=== PATIENT | female | born 1990 ===

== ENCOUNTER 2022-01-16 09:59 | Inpatient (IN) ==
[2022-01-16] MEDS ORDERED: miSOPROStoL 200 MCG TABLET RECTAL PRN (10:32)
[2022-01-16] MEDS ORDERED: ceFAZolin 3,000 MG in SYRINGE 1 EACH IV ONE (10:32)
[2022-01-16] MEDS ORDERED: CARBOPROST TROMETHAMINE 250 MCG/ML AMP IM PRN (10:32)
[2022-01-16] MEDS ORDERED: FAMOTIDINE 20 MG/2 ML VIAL IV ONE (10:32)
[2022-01-16] MEDS ORDERED: CITRIC ACID/SODIUM CITRATE 30 ML UDCUP PO ONE (10:32)
[2022-01-16] MEDS ORDERED: TRANEXAMIC ACID 1,000 MG in SODIUM CHLORIDE 0.9% 100 ML IV PRN (10:32)
[2022-01-16] MEDS ORDERED: METHYLERGONOVINE 0.2 MG/1 ML AMP IM PRN (10:32)
[2022-01-16] MEDS ORDERED: OXYTOCIN/LR 20 UNIT/1,000 ML BAG IV ONE ×2 (10:32→15:50)
[2022-01-16] MEDS ORDERED: OXYTOCIN/LR 30 UNIT/1,000 ML BAG IV ONE ×2 (10:34→10:37)
[2022-01-16 10:50] LABS: Basophils % 0.4 % (0.0-0.8); Eosinophils # 0.1 10*3/uL (0.0-0.87); Eosinophils % 1.1 % (0.00-10.9); Hematocrit 36.6 VOL% (35.7-47.0); Immature Granulocytes % 0.5 %; Immature Granulocytes Absolute 0.04 #; Lymphocytes # 2.3 10*3/uL (1.4-4.0); Lymphocytes % 28.7 % (21.3-54.2); Mean Corpuscular HGB Conc 32.8 GM/DL (32-36); Mean Corpuscular Volume 83.2 FL (87-102); Mean Platelet Volume 11.5 FL (9.6-12.0); Monocytes # 0.7 10*3/uL (0.11-0.8); Neutrophils % 61.3 % (38.7-73.9); Platelet Count 204 T/CUMM (130-400); Red Cell Distribution Width 13.4 % (9.3-17.3); White Blood Count 8.1 T/CUMM (4-12)
[2022-01-16] MEDS ORDERED: LACTATED RINGERS 1,000 ML IV SCH ×2 (11:00→16:00)
[2022-01-16 11:10] LABS: Alanine Aminotransferase 11 U/L (13-56); Albumin 2.4 G/DL (3.4-5.0); Alkaline Phosphatase 189 U/L (45-117); Aspartate Amino Transferase 12 U/L (0-37); Bilirubin,Total < 0.39 MG/DL (0.20-1.00); Blood Urea Nitrogen 12 MG/DL (7-18); Calcium 8.2 MG/DL (8.5-10.1); Carbon Dioxide 23 MMOL/L (21-32); Chloride 113 MMOL/L (98-107); Glucose 79 MG/DL (74-106); Osmolality,Calculated 281.1 MOS/KG (273-304); Potassium 3.6 MMOL/L (3.5-5.1); Sodium 142 MMOL/L (136-145); Total Protein 6.3 G/DL (6.4-8.2)
[2022-01-16] MEDS ORDERED: miSOPROStoL 200 MCG TABLET ONE (12:38)
[2022-01-16] MEDS ORDERED: METHYLERGONOVINE 0.2 MG/1 ML AMP ONE (12:38)
[2022-01-16] MEDS ORDERED: CARBOPROST TROMETHAMINE 250 MCG/ML AMP IM ONE (12:38)
[2022-01-16] MEDS ORDERED: ONDANSETRON 4 MG/2 ML VIAL ONE (13:38)
[2022-01-16] MEDS ORDERED: BUPIVACAINE SPINAL 0.75% 2 ML AMP SPINAL ONE (13:38)
[2022-01-16] MEDS ORDERED: PHENYLEPHRINE 1 MG/10 ML SYRINGE IV ONE (13:38)
[2022-01-16] MEDS ORDERED: buprenorphine HCL 0.3 MG/ML VIAL ONE (13:39)
[2022-01-16] MEDS ORDERED: KETOROLAC 30 MG/1 ML VIAL ONE (14:47)
[2022-01-16] MEDS ORDERED: ACETAMINOPHEN INJ 1,000 MG/100 ML VIAL IV ONE (14:47)
[2022-01-16 14:55] LABS: Cord Arterial Blood HCO3 22.3 MMOL/L
[2022-01-16 14:58] LABS: Cord Venous Blood HCO3 23.3 MMOL/L; Cord Venous Blood PCO2 44.5 MMHG; Cord Venous Blood PO2 37.8
[2022-01-16] MEDS ORDERED: ONDANSETRON 4 MG/2 ML VIAL IV PRN ×2 (15:50→20:41)
[2022-01-16] MEDS ORDERED: ACETAMINOPHEN 325 MG TABLET PO PRN (15:50)
[2022-01-16] MEDS ORDERED: SIMETHICONE CHEW 80 MG TABLET PO PRN (15:50)
[2022-01-16] MEDS ORDERED: RHO(D) IMMUNE GLOBULIN 300 MCG SYRINGE IM ONE (15:50)
[2022-01-16] MEDS ORDERED: MEPERIDINE 50 MG/1 ML VIAL IV PRN (20:41)
[2022-01-16] MEDS: DOCUSATE SODIUM 100 MG CAPSULE PO SCH (21:28)
[2022-01-16] MEDS ORDERED: ceFAZolin 2,000 MG in SODIUM CHLORIDE 0.9% 100 ML IV SCH (22:00)
[2022-01-16] MEDS: ceFAZolin 2,000 MG/50 ML DUPLEX IV SCH (22:57)
[2022-01-16] MEDS ORDERED: KETOROLAC 30 MG/1 ML VIAL IV SCH (23:00)
[2022-01-16] MEDS ORDERED: ACETAMINOPHEN 500 MG TABLET PO PRN (23:00)
[2022-01-16] MEDS ORDERED: KETOROLAC 30 MG/1 ML VIAL IV PRN (23:00)
[2022-01-16] MEDS ORDERED: ACETAMINOPHEN 500 MG TABLET PO SCH (23:00)
[2022-01-16 23:17] LABS: Basophils % 0.2 % (0.0-0.8); Eosinophils % 0.1 % (0.00-10.9); Hemoglobin 8.1 GM/DL (12.0-16.0); Immature Granulocytes % 0.3 %; Immature Granulocytes Absolute 0.05 #; Lymphocytes # 1.5 10*3/uL (1.4-4.0); Lymphocytes % 9.8 % (21.3-54.2); Mean Corpuscular HGB Conc 32.4 GM/DL (32-36); Mean Corpuscular Volume 84.5 FL (87-102); Monocytes # 0.9 10*3/uL (0.11-0.8); Monocytes % 5.6 % (1.7-12.7); Platelet Count 184 T/CUMM (130-400); Red Blood Count 2.96 MC/CUMM (3.8-5.5); Red Cell Distribution Width 13.5 % (9.3-17.3); White Blood Count 15.4 T/CUMM (4-12)
[2022-01-17 06:21] LABS: Basophils % 0.2 % (0.0-0.8); Eosinophils # 0.1 10*3/uL (0.0-0.87); Eosinophils % 0.4 % (0.00-10.9); Hematocrit 19.4 VOL% (35.7-47.0); Hemoglobin 6.5 GM/DL (12.0-16.0); Immature Granulocytes % 0.3 %; Immature Granulocytes Absolute 0.03 #; Lymphocytes # 2.5 10*3/uL (1.4-4.0); Lymphocytes % 21.4 % (21.3-54.2); Mean Corpuscular HGB Conc 33.5 GM/DL (32-36); Mean Corpuscular Volume 84.3 FL (87-102); Mean Platelet Volume 11.1 FL (9.6-12.0); Monocytes # 0.7 10*3/uL (0.11-0.8); Monocytes % 5.8 % (1.7-12.7); Neutrophils % 71.9 % (38.7-73.9); Platelet Count 164 T/CUMM (130-400); Red Cell Distribution Width 13.4 % (9.3-17.3); White Blood Count 11.5 T/CUMM (4-12)
[2022-01-17] MEDS: ceFAZolin 2,000 MG/50 ML DUPLEX IV SCH (06:24)
[2022-01-17] MEDS ORDERED: SODIUM CHLORIDE 0.9% 1,000 ML IV PRN (06:48)
[2022-01-17] MEDS: METOCLOPRAMIDE 10 MG TABLET PO SCH ×3 (09:58→23:33)
[2022-01-17] MEDS: MULTIVITAMIN (PRENATAL) TABLET PO SCH (09:58)
[2022-01-17] MEDS: DOCUSATE SODIUM 100 MG CAPSULE PO SCH ×2 (09:58→21:24)
[2022-01-17] MEDS: IBUPROFEN 800 MG TABLET PO PRN ×2 (12:04→21:23)
[2022-01-17 15:53] LABS: Hematocrit 24.9 VOL% (35.7-47.0); Hemoglobin 8.3 GM/DL (12.0-16.0)
[2022-01-17] MEDS: CLINDAMYCIN 300 MG CAPSULE PO SCH ×2 (18:36→23:33)
[2022-01-17] MEDS: LACTATED RINGERS 1,000 ML IV SCH (23:51)
[2022-01-18] MEDS: CLINDAMYCIN 300 MG CAPSULE PO SCH ×4 (06:10→23:57)
[2022-01-18] MEDS: LACTATED RINGERS 1,000 ML IV SCH (06:17)
[2022-01-18] MEDS: MAGNESIUM HYDROXIDE SUSP 30 ML UDCUP PO PRN ×2 (08:21→21:13)
[2022-01-18] MEDS: METOCLOPRAMIDE 10 MG TABLET PO SCH ×3 (08:22→23:57)
[2022-01-18] MEDS: DOCUSATE SODIUM 100 MG CAPSULE PO SCH ×2 (08:22→21:13)
[2022-01-18] MEDS: MULTIVITAMIN (PRENATAL) TABLET PO SCH (08:22)
[2022-01-18] MEDS: IBUPROFEN 800 MG TABLET PO PRN ×2 (12:18→21:13)
[2022-01-19] MEDS: CLINDAMYCIN 300 MG CAPSULE PO SCH ×2 (06:06→13:24)
[2022-01-19] MEDS: MULTIVITAMIN (PRENATAL) TABLET PO SCH (09:09)
[2022-01-19] MEDS: DOCUSATE SODIUM 100 MG CAPSULE PO SCH (09:09)
[2022-01-19] MEDS: MAGNESIUM HYDROXIDE SUSP 30 ML UDCUP PO PRN (09:09)
[2022-01-19] MEDS: METOCLOPRAMIDE 10 MG TABLET PO SCH ×2 (09:09→13:25)
[2022-01-19] MEDS: IBUPROFEN 800 MG TABLET PO PRN (09:10)
[2022-01-19 16:39] VITALS: BP 122/68
== END 2022-01-19 17:20 | disposition home or self-care (01) | DRG 807 ==
LOC: N.LD 09:59 → N.OB 20:30
PROVIDERS: ADMIT Obstetrics & Gynecology; ATTEND Obstetrics & Gynecology
PROC: LDCSECT (ICD-10-PCS; 2022-01-16 14:30)